=== PATIENT | female | born 2000 | race Caucasian/White ===

== ENCOUNTER → 2023-05-16 | Outpatient (CLI) | payer BC ==
--- NOTE | 2023-05-17 07:32 | US ---
EXAMINATION TYPE: US pelvic complete DATE OF EXAM: 05/16/2023 COMPARISON: NONE CLINICAL INDICATION: Female, 23 years old with history of E28.2 POLYCYSTIC OVARIAN SYNDROME; PCOS, ir regular cycles TECHNIQUE: TA. Transabdominal sonographic images of the pelvis were acquired. Date of LMP: 2 months ago EXAM MEASUREMENTS: Uterus: 7.3 x 3.9 x 3.5cm Endometrial Stripe: 0.7 cm Right Ovary: 3.3 x 2.3 x 1.6cm Left Ovary: 2.9 x 1.9 x 1.7cm 1. Uterus: Anteverted wnl 2. Endometrium: wnl 3. Right Ovary: wnl 4. Left Ovary: wnl 5. Bilateral Adnexa: wnl 6. Posterior cul-de-sac: wnl IMPRESSION: Unremarkable study
== END | disposition home or self-care (01) ==
LOC: RADUSWWP 15:40
PROVIDERS: ATTEND Family Medicine
DX: E28.2 Polycystic ovarian syndrome (principal)
CPT/HCPCS: 76856